=== PATIENT | male | born 1995 | race Caucasian/White ===

== ENCOUNTER 2024-11-16 16:33 | Emergency (ER) | payer BC, SELFPAY ==
[2024-11-16 16:35] VITALS: BP 148/95
[2024-11-16 16:40] LABS: Glucose - Point of Care 125 mg/dl (70-99)
[2024-11-16 17:30] VITALS: BMI 26.3
[2024-11-16] MEDS: NSS 1000 IV (17:38)
[2024-11-16] MEDS: ZOFRAN 4 MG IV (17:39)
[2024-11-16 17:42] VITALS: BP 118/82
[2024-11-16 17:46] LABS: Hematocrit 40.7 % (39.0-52.0); Hemoglobin 14.4 g/dL (13.0-18.0); Mean Corp Hgb Conc. 35.4 g/dL (33.0-37.0); Mean Corpuscular Volume 85.1 fL (80.0-94.0); Nucleated Red Blood Cells % 0 % (-); Platelet Count 261 10^3/uL (130-400); Red Cell Dist. Width 12.0 % (11.5-14.5)
[2024-11-16 18:00] VITALS: BP 104/62
--- NOTE | 2024-11-16 18:00 | ED.GENMED ---
History of Present Illness
General
Chief Complaint: Abdominal Symptoms
Source: patient
Exam Limitations: none
Time Seen by Provider: 11/16/24 16:42
Nursing documentation reviewed up to this point in time: agreed with
History of Present Illness
History of Present Illness:
Patient is a 29-year-old male who presents to the ER for evaluation. Patient was working outside all morning(demolition of his deck )did not eat breakfast around 12 PM started to feel very nauseous and dizzy. Patient laid down from 12 to 3 PM
however continued to not feel well. He vomited multiple times prior to arrival and in the waiting room. He did feel little abdominal discomfort. He denies any recent illness fever chills. Denies any diarrhea.
Past History
Past History
ED Past Medical History: Psychiatric
ED Past Surgical History: None
Social History
Tobacco: Smoker (5 cigarettes/day)
Alcohol: Occasional
Drug: Marijuana (vape occasionally)
Personal: Single
Living: with family (Girlfriend)
Employment: Employed
Phy Exam
General Physical Exam
General Presentation: no apparent distress
General age: appears stated age
General Skin: warm and dry
General Habitus: normal
General Mental: alert
General Hydration: appears well hydrated
Gastrointestinal Exam
Gastrointestinal Exam: soft and other (mild non specific lower abd tenderness )
Neurological Exam
Neurological Exam: alert and oriented x3
Musculoskeletal Exam
Musculoskeletal Exam: full ROM
Skin Exam
Skin Exam: normal color and warm/dry
Psychiatric Exam
Psychiatric Exam: normal mood/affect
Course
Orders/Labs/Results
Orders:
Orders
11/16/24 17:18
Electrocardiogram (*1) Urgent
Reason for Study: Other
Other Reason for Exam: dizzy
Cardiac Monitoring- Treatment ONCE
EKG- Treatment ONCE
IV Insert/Care/Rem.- Treatment PRN
0.9% Sodium Chloride 1000 ml [Nss] 1,000 ml IV BOLUS
11/16/24 17:27
Ondansetron Injectable [Zofran] 4 mg IV NOW STA
11/16/24 17:32
Basic Metabolic Panel Urgent
Complete Blood Count/With Diff Urgent
11/16/24 18:00
CT Abd/pelvis W Iv Cont Urgent
Comment:
Reason For Exam: abd pain (lower abd)
Abnormal Lab Results
11/16/24 11/16/24
16:39 17:32
WBC 13.2 H 10^3/uL
(4.8-10.8)
MPV 10.7 H fL
(7.4-10.4)
Absolute Neuts (auto) 10.2 H 10^3/uL
(1.4-6.5)
Absolute Monos (auto) 0.9 H 10^3/uL
(0.1-0.6)
Neutrophils % 77.6 H %
(42.2-75.2)
Lymphocytes % 12.4 L %
(20.5-51.1)
Glucose 104 H mg/dl
(70-99)
POC Glucose 125 H mg/dl
(70-99)
11/16/24 17:32
11/16/24 17:32
Vital Signs
Initial and Last Documented VS:
Initial Vital Signs
Temp Pulse Resp BP Pulse Ox
98.5 F 98 18 148/95 98
11/16/24 16:35 11/16/24 16:35 11/16/24 16:35 11/16/24 16:35 11/16/24 16:35
Last Documented Vital Signs
Temp Pulse Resp BP Pulse Ox
98.5 F 58 18 120/80 99
11/16/24 16:35 11/16/24 19:39 11/16/24 19:39 11/16/24 19:39 11/16/24 19:39
MDM/Problems Addressed
MDM/Problems Addressed:
As documented patient is a 29-year-old male who was out in the heat for several hours working on his deck and started to feel dizzy and lightheaded and then vomited multiple times. Despite napping he still felt nauseous not well. He presented to
the ER. He did complain of mild lower abdominal nonspecific pain. He presented febrile. CAT scan negative for acute findings, moderate colonic stool burden.
Patient was given fluids and nausea medicine feeling much better here in the ER on reexam no abdominal pain tolerating fluids. White count minimally elevated likely reactive possible viral syndrome versus likely heat related illness however patient
is stable for discharge home and feeling much better. He denies any UTI symptoms urinalysis hold off. His potassium is clotted however normal renal function.
I did review with with patient findings of constipation on CAT scan, to try MiraLAX
*Radiology
Radiology exam reviewed: radiology read reviewed
*Pulse Oximetry
SaO2: 100
Oxygen Mode of Delivery: Room air
Patient hypoxic: no
*Critical Care Note
Total Time (30-74mins, 75-104mins- exclusive of procedures): Not Applicable
ED Attending Note
-
Portions of this chart may have been created with voice recognition software.� Occasional wrong word or��sound alike� substitutions may have occurred due to the inherent limitations of voice recognition software.
Discharge Plan
Departure
Patient Disposition: Home (Routine Discharge)
Date of Disposition: 11/16/24
Time of Disposition: 20:03
Patient with high blood pressure during this ER visit?: Yes
Condition: Fair
Covid-19: Not Applicable
Discharge Problem:
Nausea and vomiting
Instructions: Clear Liquid Diet, Nausea and Vomiting, Adult (DC)
Prescriptions:
No Action
cetirizine 10 mg Tablet
10 mg PO DAILY
escitalopram oxalate 20 mg Tablet
20 mg PO DAILY
guanfacine 3 mg Tablet Extended Release 24 Hr
3 mg PO DAILY
Referrals:
UNKNOWN - PT DOES,NOT KNOW [Family Provider]
Activity Restrictions/Additional Instructions:
As discussed clear liquids for the next 24 hours followed by bland solid foods. It is possible that you had a mild heat related illness or viral syndrome. Follow-up with your family doctor in the next several days and return if any worsening of
symptoms.
Interventions
Interventions:
*Risk Screen - Suicide Last Done: 11/16/24 16:39
*General Assessment Last Done: 11/16/24 16:49
*Neglect/Abuse Screening Last Done: 11/16/24 16:39
*ED- Fall Risk Assessment Last Done: 11/16/24 16:49
*ED COVID-19 Vaccine History Last Done: 11/16/24 16:49
TK-[facility]-Ftgnjkjthh Assessment Last Done: 11/16/24 16:49
Discharge Date and Time
Print Language: TONGAN
[2024-11-16 18:15] LABS: Blood Urea Nitrogen 12 mg/dl (9-20); Calcium 9.6 mg/dl (8.4-10.2); Carbon Dioxide 28 mmol/L (22-30); Chloride 105 mmol/L (98-107); Estimated Creatinine Clearance > 125 ml/min; Glucose 104 mg/dl (70-99); Sodium 139 mmol/L (135-145); eGFR > 60.00
[2024-11-16 19:30] VITALS: BP 120/80
[2024-11-16 19:39] VITALS: BP 120/80
== END 2024-11-16 20:17 | disposition home or self-care (01) ==
LOC: EMR 16:33
PROVIDERS: Nurse Practitioner; EMERGENCY PHYSICIAN Emergency Medicine
DX: R11.2 Nausea with vomiting, unspecified (principal); R42 Dizziness and giddiness; F17.210 Nicotine dependence, cigarettes, uncomplicated; F12.90 Cannabis use, unspecified, uncomplicated
CPT/HCPCS: 96374; 96361; 99284; 74177; 80048; 82962; 85025; 93005; Q9967